=== PATIENT | female | born 1950 | race Caucasian/White ===

== ENCOUNTER → 2021-05-29 | Outpatient (CLI) | payer MEDICARE, OTHER ==
--- NOTE | 2021-05-29 17:07 | RAD ---
Renal duplex: Reason for examination: Chronic kidney disease and hypertension. Ultrasound examination of the kidneys with Doppler was performed using grayscale imaging, color-flow imaging and spectral analysis. The right kidney measures 9.2 x 3.9 x 3.8 cm in greatest dimensions with normal cortical medullary di fferentiation and good vascular flow. There is no mass or hydronephrosis. The left kidney measures 10.1 x 4.3 x 4.0 cm in greatest dimension with normal cortical medullary dif ferentiation and good vascular flow. No mass or hydronephrosis is seen. No abnormality seen at the bladder. The abdominal aorta and inferior vena cava show no acute abnormalities. Incidental note is made of mild enlargement of the spleen at 12.8 cm. Abdominal aorta flow velocity is 154 cm/s. Proximal right renal artery flow velocity is 123 cm/s with resistive index of 0.8 Mid right renal artery flow velocity is 117 cm/s with resistive index of 0.8 Distal right renal artery flow velocity is 62 cm/s with a resistive index of 0.8. Right renal artery to aortic ratio 0.8. Proximal left renal artery flow velocity is 101 cm/s with a resistive index of 0.8. Mid left renal artery flow velocity is 133 with a resistive index of 0.8 Distal left renal artery flow velocity is 115 cm/s with a resistive index of 0.8 Left renal artery to aortic ratio 0.9. IMPRESSION: Normal flow velocities with no evidence of renal artery stenosis evident. Electronically signed by: Myriam Esteban MD (05/29/2021 5:05 PM) [id number]
== END ==
LOC: US 09:50
PROVIDERS: ATTEND Family Medicine
DX: I12.9 Hypertensive chronic kidney disease with stage 1 through stage 4 chronic kidney disease, or unspecified chronic kidney disease (principal); N18.31 Chronic kidney disease, stage 3a
CPT/HCPCS: 76770